=== PATIENT | female | born 1995 | race Caucasian/White ===

== ENCOUNTER 2018-03-30 00:20 | Emergency (ER) | payer MEDICARE ==
[~2018-03-30] VITALS: Ht 162.6 cm; Wt 63.5 kg
[2018-03-30 00:24] VITALS: BP 125/80
--- NOTE | 2018-03-30 00:30 | NUR ---
PT AMBULATED TO BED 8
[2018-03-30] MEDS ORDERED: ONDANSETRON 4 MG ODT PO ONE (00:55)
[2018-03-30] MEDS ORDERED: DICYCLOMINE 20 MG/2 ML VIAL IM ONE (00:55)
--- NOTE | 2018-03-30 01:00 | NUR ---
PATIENT IS A 22 Y/O FEMALE WHO PRESENTS TO THE ED C/O DIARRHEA. PT STATES THAT IT STARTED TODAY. PT REPORTS 4/10 ACHING ABD PAIN THAT DOES NOT RADIATE. PT DENIES CP, SOB, REPORTS NAUSEA/DIARRHEA DENIES VOMITING. PT TOOK ANTIDIARRHEALS WITHOUT RELIEF. PT AWAKE AND ALERT, RR EVEN/UNLABORED. PT REPOSITIONED FOR COMFORT, BED IN LOWEST POSITION. ER MD DR. MOTA NOTIFIED. WILL CONTINUE TO MONITOR.
[2018-03-30] MEDS ORDERED: NACL 0.9% 1,000 ML IV ONE (01:45)
--- NOTE | 2018-03-30 02:41 | NUR ---
PT AMB TO [facility] W/O ASST
--- NOTE | 2018-03-30 03:04 | NUR ---
Patient appears to be resting comfortably in bed. Vital Signs within normal limits. Respirations even and unlabored.
[2018-03-30 03:17] VITALS: BP 113/63
--- NOTE | 2018-03-30 03:18 | NUR ---
Patient discharged with v/s stable. Written and verbal after care instructions given and explained. Patient alert, oriented and verbalized understanding of instructions. Ambulatory with steady gait. All questions addressed prior to discharge. ID band removed. Patient advised to follow up with PMD. Rx of ZOFRAN ODT 4MG, BENTYL 20MG, given. Patient educated on indication of medication including possible reaction and side effects. Opportunity to ask questions provided and answered.
== END 2018-03-30 03:18 | disposition home or self-care (01) ==
LOC: MED 00:20
DX: R11.2 Nausea with vomiting, unspecified (principal); R19.7 Diarrhea, unspecified; R10.9 Unspecified abdominal pain; Z90.89 Acquired absence of other organs
CPT/HCPCS: 81002; 81025; 96360; 96372; 99284; J0500; J7030; S0119

== ENCOUNTER 2018-10-27 15:44 | Emergency (ER) | payer BC, MEDICARE ==
[~2018-10-27] VITALS: Ht 162.6 cm; Wt 81.6 kg
[2018-10-27 15:52] VITALS: BP 130/70
--- NOTE | 2018-10-27 19:54 | NUR ---
PATIENT CAME IN WITH C/O COLD SYMPTOMS X 3 DAYS, TOOK TEMP AT HOME AND WAS 105 F, RUNNY NOSE. ALERT AND ORIENTED, LUNG SOUNDS CLEAR TO AUSCALTATION THROUGH OUT. PAIN IS 5/10 AND IS PROVOKED BY BREATHING AND COUGH, PATIENT HAS A NON-PRODUCTIVE COUGH X 3 DAYS. TOOK ADVIL AT 1200 10/27/18 FOR FEVER, TOOK ROBITUSSIN AT 1600 10/26/18 FOR COUGH. 1 SIDE RAIL UP, HOB ELEVATES, GIVEN A BALNKET, WAITING FOR EVAL BY ER MD, WILL CONTINUE TO MONITOR.
--- NOTE | 2018-10-27 19:54 | NUR ---
PT AMBULATED TO BED 9
--- NOTE | 2018-10-27 20:39 | NUR ---
PATIENT DISCHARGED BY DR SNOW, PATIENT RX OF PROMETHAZINE AND AUGMENTIN, PATIENT VERBALIZED RX TEACHING AND ALL QUESTIONS WERE ANSWERED. PATIENT WAS AFEBRILE, AND NO RESPIRATORY DISTRESS NOTED.
[2018-10-27 20:40] VITALS: BP 119/74
== END 2018-10-27 20:39 | disposition home or self-care (01) ==
LOC: MED 15:44
DX: J06.9 Acute upper respiratory infection, unspecified (principal); E78.00 Pure hypercholesterolemia, unspecified
CPT/HCPCS: 99283

== ENCOUNTER 2019-03-11 20:55 | Emergency (ER) | payer BC ==
[~2019-03-11] VITALS: Ht 162.6 cm; Wt 82.3 kg
[2019-03-11 20:57] VITALS: BP 130/66
--- NOTE | 2019-03-11 21:00 | NUR ---
TO LOBBY A/W BED AMBULATORY
--- NOTE | 2019-03-11 21:36 | NUR ---
23F C/O 5/10 EPIGASTRIC PAIN X 2 WEEKS AND HEADACHE, BODY ACHES AND SHAKING X 2 DAYS. STATES NAUSEA. DENIES VOMITING, DIARRHEA. DENIES URI SYMPTOMS. STATES FELT WARM AT HOME BUT NO FEVER. DENIES SELF TX AT HOME HX: NONE RX: NONE ALL: NKA
--- NOTE | 2019-03-11 22:09 | NUR ---
ASKED LAB TO BRING MORE STREP SWAB
--- NOTE | 2019-03-11 22:20 | NUR ---
STREP SWAB OBTAINED AND GIVEN TO FLUID DYNAMICIST
--- NOTE | 2019-03-11 23:05 | NUR ---
DR. OBANDO SPEAKING WITH PATIENT
[2019-03-11] MEDS ORDERED: KETOROLAC 15 MG/ML VIAL IM ONE (23:45)
[2019-03-11 23:58] VITALS: BP 123/69
--- NOTE | 2019-03-11 23:58 | NUR ---
Patient discharged with v/s stable. Written and verbal after care instructions given and explained. Patient alert, oriented and verbalized understanding of instructions. Ambulatory with steady gait. All questions addressed prior to discharge. ID band removed. Patient advised to follow up with PMD. Rx of RANITIDINE given. INSTRUCTED CAN TAKE TYLENOL FOR PAIN. Patient educated on indication of medication including possible reaction and side effects. Opportunity to ask questions provided and answered.
== END 2019-03-11 23:58 | disposition home or self-care (01) ==
LOC: MED 20:55
DX: J02.8 Acute pharyngitis due to other specified organisms (principal); K21.9 Gastro-esophageal reflux disease without esophagitis
CPT/HCPCS: 81025; 87081; 96372; 99283; J1885

== ENCOUNTER 2021-03-08 17:12 | Emergency (ER) | payer SELFPAY ==
[~2021-03-08] VITALS: Ht 162.6 cm; Wt 86.2 kg
[2021-03-08 17:41] VITALS: BP 127/97
[2021-03-08] MEDS ORDERED: EPINEPHrine 1 MG/ML AMP IM ONE (18:25)
[2021-03-08] MEDS ORDERED: predniSONE 20 MG TAB PO ONE (18:25)
[2021-03-08] MEDS ORDERED: FAMOTIDINE 20 MG TAB PO ONE (18:25)
[2021-03-08] MEDS ORDERED: PRED20TA5 PO (21:56)
[2021-03-08] MEDS ORDERED: FAMO-90 PO (21:56)
[2021-03-08] MEDS ORDERED: [UNRECOGNIZED DRUG - CODE] MM (21:56)
[2021-03-08 22:30] VITALS: BP 119/81
--- NOTE | 2021-03-08 22:30 | NUR ---
Patient discharged with v/s stable. Written and verbal after care instructions given and explained. Patient alert, oriented and verbalized understanding of instructions. Ambulatory with steady gait. All questions addressed prior to discharge. ID band removed. Patient advised to follow up with PMD. Rx of PEPCID, PREDNISONE,CEPACOL given. Patient educated on indication of medication including possible reaction and side effects. Opportunity to ask questions provided and answered.
== END 2021-03-08 22:30 | disposition home or self-care (01) ==
LOC: MED 17:12
DX: T78.1XXA Other adverse food reactions, not elsewhere classified, initial encounter (principal); J02.8 Acute pharyngitis due to other specified organisms; X58.XXXA Exposure to other specified factors, initial encounter
CPT/HCPCS: 96372; 99283; J0171; J7512